=== PATIENT | male | born 1955 | race Caucasian/White ===

== ENCOUNTER 2022-05-21 21:23 | Observation (INO) ==
[2022-05-21] MEDS ORDERED: Iopamidol - 370 500 ML MLS IVP ONE (22:05)
[2022-05-21 22:50] LABS: VBG HCO3 29 mEq/L (21-27); VBG PCO2 53 mmHg (41-51); VBG PH 7.35 pH Units (7.32-7.42); VBG PO2 42 mmHg (25-50)
[2022-05-21 22:53] LABS: Basophils # 0.1 K/mcL (0.0-0.2); Basophils % 0.6 %; Eosinophils # 0.2 K/mcL (0.0-0.6); Eosinophils % 2.1 %; Hematocrit 43.3 % (37.5-50.1); Hemoglobin 14.5 g/dL (12.9-16.9); Immature Granulocytes % 0.2 % (0-4); Lymphocytes # 1.1 K/mcL (0.6-4.6); Lymphocytes % 12.8 %; Mean Corpuscular HGB Conc 33.5 g/dL (31.6-35.5); Mean Corpuscular Hemoglobin 30.3 pg (28.0-33.3); Mean Corpuscular Volume 90.4 fL (83.0-100.0); Mean Platelet Volume 8.5 fL (9.4-12.4); Monocytes # 0.7 K/mcL (0.0-1.3); Monocytes % 8.6 %; Neutrophils # 6.4 K/mcL (1.6-8.9); Platelet Count 274 K/mcL (140-400); Red Blood Count 4.79 M/mcL (4.19-5.50); Segmented Neutrophils % 75.7 %; White Blood Count 8.5 K/mcL (4.3-11.1)
[2022-05-21 23:00] LABS: INR 1.1; Prothrombin Time 11.8 Seconds (9.4-12.1)
[2022-05-21 23:12] LABS: Alanine Aminotransferase 15 Units/L (7-52); Albumin 3.5 g/dL (3.5-5.7); Albumin/Globulin Ratio 1.1 (1.1-2.2); Alkaline Phosphatase 99 Units/L (34-104); Aspartate Amino Transferase 13 Units/L (13-39); BUN/Creatinine Ratio 13 (6-26); Bilirubin,Direct 0.1 mg/dL (0.0-0.2); Bilirubin,Indirect 0.4 mg/dL (0.0-1.0); Bilirubin,Total 0.5 mg/dL (0.3-1.0); Blood Urea Nitrogen 25 mg/dL (8-23); Calcium 9.7 mg/dL (8.6-10.3); Carbon Dioxide 29 mEq/L (23-29); Chloride 103 mEq/L (98-107); Ethanol < 10 mg/dL (Less than 10); Globulin 3.3 g/dL (2.4-3.5); Glucose 102 mg/dL (70-105); Lipase 41 Units/L (11-82); Osmolality,Calculated 295 (280-300); Potassium 3.3 mEq/L (3.5-5.1); Sodium 140 mEq/L (136-145); Total Protein 6.8 g/dL (6.4-8.9)
[2022-05-21 23:13] LABS: Troponin I < 0.03 ng/mL (< 0.04)
[2022-05-21] MEDS ORDERED: Morphine Sulfate 2 MG/ML SYRINGE IVP ONE (23:22)
[2022-05-21 23:24] LABS: Bilirubin,Urine Negative (Negative); Blood,Urine Trace (Negative); Clarity,Urine Clear (Clear); Color,Urine Colorless (Yellow); Glucose,Urine (UA) 70 mg/dL (Normal); Hyaline Casts,Urine Few per lpf (None Seen); Ketones,Urine Negative (Negative); Leukocyte Esterase,Urine Negative (Negative); Mucus,Urine Few per lpf (None-Few); Nitrite,Urine Negative (Negative); PH,Urine 6.5 pH Units (5.0-8.0); Protein,Urine 200 mg/dL (Neg-Trace); RBC,Urine 0-3 per hpf (0-3); Specific Gravity,Urine 1.015 (1.010-1.025); Squamous Epithelial Cell,Urine Few per hpf (None-Few); Urobilinogen,Urine Normal (Normal); WBC,Urine 0-3 per hpf (0-3)
[2022-05-21 23:27] LABS: Thyroid Stimulating Hormone 0.846 mcIU/mL (0.340-5.600)
[2022-05-21 23:29] LABS: Amphetamine Screen,Urine Negative ng/mL (Cutoff=1000); Barbiturate Screen,Urine Negative ng/mL (Cutoff=200); Benzodiazepines Screen,Urine Negative ng/mL (Cutoff=200); Cannabinoid Screen,Urine Negative ng/mL (Cutoff = 50); Cocaine Screen,Urine Negative ng/mL (Cutoff= 300); Opiate Screen,Urine Negative ng/mL (Cutoff=300); Phencyclidine Screen,Urine Negative ng/mL (Cutoff=25)
[2022-05-22] MEDS ORDERED: Ondansetron 4 MG/2 ML VIAL IVP PRN (04:45)
[2022-05-22] MEDS ORDERED: Naloxone 0.4 MG/ML INJ IVP PRN (08:08)
[2022-05-22] MEDS ORDERED: D5% in Water 1,000 ML IVC PRN (08:12)
[2022-05-22] MEDS ORDERED: Dextrose Gel 15 GM/37.5 ML TUBE PO PRN ×2 (08:12)
[2022-05-22] MEDS ORDERED: *HR* Dextrose 50 % in Water (Syg) 50 ML SYRINGE IVP PRN (08:12)
[2022-05-22] MEDS: Pantoprazole 40 MG VIAL IVP SCH (08:49)
[2022-05-22] MEDS: Acetaminophen 325 MG TABLET PO PRN ×2 (08:53→17:00)
[2022-05-22] MEDS ORDERED: amLODIPine 5 MG TABLET PO SCH (09:00)
[2022-05-22 09:52] LABS: Troponin I < 0.03 ng/mL (< 0.04)
[2022-05-22 10:15] LABS: Folate 21.9 ng/mL (3.0-16.0)
[2022-05-22 11:15] LABS: Estimated Average Glucose 166 mg/dl; Hemoglobin A1C 7.4 %
[2022-05-22] MEDS: Insulin LISPRO 300 UNITS/3 ML VIAL SUBQ SCH ×3 (12:16→20:18)
[2022-05-22] MEDS: Ondansetron 4 MG/2 ML VIAL IVP PRN (12:33)
[2022-05-22] MEDS: carvediloL 6.25 MG TABLET PO SCH ×2 (12:52→18:11)
[2022-05-22] MEDS ORDERED: carvediloL 6.25 MG TABLET PO SCH (17:00)
[2022-05-22] MEDS: *HR* Heparin 5,000 UNIT/ML VIAL SQ SCH (17:03)
[2022-05-23 02:45] LABS: Calcium 8.9 mg/dL (8.6-10.3); Potassium 4.1 mEq/L (3.5-5.1)
[2022-05-23] MEDS: Ondansetron 4 MG/2 ML VIAL IVP PRN (04:43)
[2022-05-23] MEDS: *HR* Heparin 5,000 UNIT/ML VIAL SQ SCH ×2 (04:44→17:25)
[2022-05-23 05:11] LABS: Basophils # 0.1 K/mcL (0.0-0.2); Basophils % 0.5 %; Eosinophils # 0.3 K/mcL (0.0-0.6); Eosinophils % 2.5 %; Hematocrit 43.1 % (37.5-50.1); Hemoglobin 14.4 g/dL (12.9-16.9); Immature Granulocytes % 0.3 % (0-4); Lymphocytes # 1.6 K/mcL (0.6-4.6); Lymphocytes % 12.5 %; Mean Corpuscular HGB Conc 33.4 g/dL (31.6-35.5); Mean Corpuscular Volume 89.8 fL (83.0-100.0); Mean Platelet Volume 8.7 fL (9.4-12.4); Monocytes # 0.9 K/mcL (0.0-1.3); Monocytes % 7.1 %; Platelet Count 302 K/mcL (140-400); Red Cell Distribution Width 13.1 % (11.5-14.5); Segmented Neutrophils % 77.1 %
[2022-05-23 05:13] LABS: White Blood Count 12.9 K/mcL (4.3-11.1)
[2022-05-23] MEDS: Pantoprazole 40 MG VIAL IVP SCH (07:09)
[2022-05-23] MEDS: carvediloL 6.25 MG TABLET PO SCH ×2 (07:09→17:20)
[2022-05-23] MEDS: Acetaminophen 325 MG TABLET PO PRN ×2 (07:15→15:36)
[2022-05-23] MEDS: Insulin LISPRO 300 UNITS/3 ML VIAL SUBQ SCH ×4 (08:04→20:27)
[2022-05-23] MEDS ORDERED: amLODIPine 5 MG TABLET PO SCH (09:00)
[2022-05-23] MEDS: Morphine Sulfate 2 MG/ML SYRINGE IVP PRN ×2 (10:38→20:22)
[2022-05-23] MEDS: *HR* Labetalol 20 MG/4 ML SYRINGE IVP PRN ×2 (13:27→23:03)
[2022-05-23] MEDS: Sennosides/Docusate Sodium TABLET PO SCH ×2 (17:20→20:24)
[2022-05-23] MEDS: polyethylene glycoL 3350 17 GM POWD.PACK PO SCH (17:21)
[2022-05-23] MEDS: Cyanocobalamin (B-12) 1,000 MCG/ML VIAL SQ SCH (17:23)
[2022-05-24] MEDS: *HR* Labetalol 20 MG/4 ML SYRINGE IVP PRN (03:12)
[2022-05-24] MEDS: Acetaminophen 325 MG TABLET PO PRN ×2 (05:58→11:53)
[2022-05-24] MEDS: *HR* Heparin 5,000 UNIT/ML VIAL SQ SCH (06:00)
[2022-05-24] MEDS: Cyanocobalamin (B-12) 1,000 MCG/ML VIAL SQ SCH (08:40)
[2022-05-24] MEDS: Pantoprazole 40 MG VIAL IVP SCH (08:40)
[2022-05-24] MEDS: polyethylene glycoL 3350 17 GM POWD.PACK PO SCH (08:40)
[2022-05-24] MEDS: Insulin LISPRO 300 UNITS/3 ML VIAL SUBQ SCH ×2 (08:40→11:54)
[2022-05-24] MEDS: Sennosides/Docusate Sodium TABLET PO SCH (08:41)
[2022-05-24] MEDS: carvediloL 6.25 MG TABLET PO SCH (08:41)
[2022-05-24] MEDS: Ondansetron 4 MG/2 ML VIAL IVP PRN (08:45)
[2022-05-24] MEDS ORDERED: NIFEdipine XL (24 HR) 60 MG TAB.ER.24 PO SCH (09:00)
[2022-05-24] MEDS ORDERED: NON-FORMULARY MEDICATION 1 EACH EACH (Omeprazole Magnesium [Prilosec Otc] 20 MG Tablet.Dr) PO SCH (09:00)
[2022-05-24] MEDS ORDERED: Vitamin E 200 UNIT (90MG) CAPSULE PO SCH (09:00)
[2022-05-24] MEDS ORDERED: Multivit/Ca/Min/Fe/FA 1 TAB TABLET PO SCH (09:00)
[2022-05-24 14:45] VITALS: BP 145/81; PULSE 84; TEMP 97.5; O2SAT 95
== END 2022-05-24 17:02 | disposition home health service (06) ==
LOC: 3BNU 21:23 → EMEROOARM 21:23 → SUATTDRO 05-22 06:12 → 3BNU 05-22 06:29
PROVIDERS: ADMIT Internal Medicine; ATTEND Pharmacist